=== PATIENT | female | born 1995 | race Caucasian/White ===

== ENCOUNTER → 2022-04-14 | Outpatient (CLI) | payer BC ==
[2022-04-14 22:53] LABS: HCT 40.8 % (37.2-46.3); HGB 13.3 g/dL (12.0-15.0); MCH 29.8 pg (27.0-32.0); MCHC 32.6 g/dL (32.0-37.0); MCV 91.3 fL (80.0-97.0); Mean Platelet Volume 8.7 fL (9.5-12.2); NRBC Per 100 WBC 0 /100 WBCS (0.0-0.0); Platelet Count 192 X 10*3/uL (140-440); RBC 4.47 X 10*6/uL (4.10-5.20); WBC 8.68 X 10*3/uL (4.50-10.00)
== END | disposition home or self-care (01) ==
LOC: LABWHC1 14:17
PROVIDERS: ATTEND Obstetrics & Gynecology Obstetrics
DX: Z36.9 Encounter for antenatal screening, unspecified (principal)
CPT/HCPCS: 36415; 82950; 85027

== ENCOUNTER 2022-07-08 06:00 | Inpatient (IN) | payer BC ==
[2022-07-08] MEDS ORDERED: miSOPROStoL 200 MCG TAB PO PRN (06:19)
[2022-07-08] MEDS ORDERED: TERBUTALINE 1 MG/ML VIAL SQ PRN (06:19)
[2022-07-08] MEDS ORDERED: LIDOCAINE 0.5% (PF) 5 MG/ML (50 ML SDV) SQ PRN (06:19)
[2022-07-08] MEDS ORDERED: OXYTOCIN 10 UNIT/ML 1 ML VIAL IM PRN (06:19)
[2022-07-08] MEDS ORDERED: METHYLERGONOVINE 0.2 MG/ML 1 ML AMP IM PRN (06:19)
[2022-07-08] MEDS ORDERED: TRANEXAMIC ACID IN NACL,ISO-OS 1,000 MG in EMPTY BAG 1 BAG IV PRN (06:19)
[2022-07-08] MEDS ORDERED: CARBOPROST TROMETHAMINE 250 MCG/ML 1 ML AMP IM PRN (06:19)
[2022-07-08] MEDS ORDERED: OXYTOCIN 30 UNITS/500 ML NS 30 UNIT in SALINE 1 500ML.BAG IV SCH ×2 (06:30→12:15)
[2022-07-08] MEDS: LACTATED RINGERS 1,000 ML IV SCH ×3 (06:32→14:46)
[2022-07-08 06:41] LABS: Basophils % (A) 0 %; Eosinophils # (A) 0.1 k/uL (0-0.7); Eosinophils % (A) 2 %; HCT 39.6 % (34.0-46.0); HGB 14.1 gm/dL (11.4-16.0); Lymphocytes # (A) 1.1 k/uL (1.0-4.8); Lymphocytes % (A) 14 %; MCH 30.1 pg (25.0-35.0); MCHC 35.5 g/dL (31.0-37.0); Mean Platelet Volume 7.3; Monocytes # (A) 0.4 k/uL (0-1.0); Monocytes % (A) 6 %; Neutrophils # (A) 6.1 k/uL (1.3-7.7); Neutrophils % (A) 77 %; Platelet Count 173 k/uL (150-450); RBC 4.66 m/uL (3.80-5.40)
[2022-07-08] MEDS ORDERED: fentaNYL (PF) 50 MCG/ML 5 ML AMP ONE (09:40)
[2022-07-08] MEDS ORDERED: SODIUM CHLORIDE 0.9% 100 ML BAG ONE (09:40)
[2022-07-08] MEDS ORDERED: ROPIVACAINE 5 MG/ML 20 ML AMPULE ONE (09:40)
[2022-07-08] MEDS ORDERED: BENZOCAINE/MENTHOL SPRAY 1 GM/SPRAY AEROSOL TOPICAL PRN (12:03)
[2022-07-08] MEDS ORDERED: diphenhydrAMINE 25 MG CAP PO PRN (12:03)
[2022-07-08] MEDS ORDERED: LANOLIN CREAM 5 GM TUBE TOPICAL PRN (12:03)
[2022-07-08] MEDS ORDERED: HYDROCORTISONE 2.5% RECTAL CREAM 30 GM TUBE RECTAL PRN (12:03)
[2022-07-08] MEDS ORDERED: diphenhydrAMINE 50 MG CAP PO PRN (12:03)
[2022-07-08] MEDS ORDERED: diphenhydrAMINE 50 MG/ML 1 ML VIAL IVP PRN ×2 (12:03)
[2022-07-08] MEDS ORDERED: SIMETHICONE 80 MG CHEWABLE PO PRN (12:03)
[2022-07-08] MEDS ORDERED: ZOLPIDEM 5 MG TAB PO PRN (12:03)
--- NOTE | 2022-07-08 12:09 | P.PROBDLV ---
Vaginal Delivery Note - . Vaginal Delivery Note: This is a 26-year-old at 39-5/7 weeks that presents to labor and delivery for induction of labor secondary to advanced cervical dilation. Patient was noted to be 4 cm 90% effaced with a bulging bag of water in the office. Patient was admitted and Pitocin induction of labor was begun per hospital protocol. Patient underwent amniotomy where clear fluid was obtained. Patient progressed quickly to 6 cm and requested epidural placement. Soon after the epidural patient was noted to be 9 cm. Patient progressed to complete began pushing and had a normal spontaneous vaginal delivery of a viable female infant at 1147, weight of 7 lbs. 8 oz., Apgars of 9 and 9 at one and 5 minutes respectively. After a two-minute delayed the umbo cord was doubly clamped and cut. The placenta was delivered spontaneously intact with three-vessel cord being noted. On inspection the patient's vaginal vault a second-degree midline laceration was appreciated. This was injected with lidocaine and repaired in usual fashion with 3-0 repeat. Uterus is noted be firm and below the umbilicus. A steady amount of bleeding was appreciated and resolved with fundal massage. The bladder was drained for approximately 200 mL of clear yellow urine. All counts were noted be correct 2 at the end of the delivery. Patient and infant tolerated delivery well and are resting comfortably.
--- NOTE | 2022-07-08 12:12 | P.HPOB ---
History of Present Illness H&P Date: 07/08/22 Chief Complaint: IUP @ 39 5/7 weeks, advanced cervical dilation This is a 26 yo at 39 5/7 weeks that presents for induction of labor secondary to advanced cervical dilation. She has been receiving routine care with myself which has been essentially uncomplicated. Patient has noted good movement, denies contractions loss of fluid or vaginal bleeding. On bloodwork this patient is a blood type of B+, rubella status immune, hepatitis B surface antigen negative, HIV negative, RPR is nonreactive. Review of Systems Constitutional: Denies chills, Denies fatigue, Denies fever Ears, nose, mouth and throat: Denies headache Cardiovascular: Reports leg edema Respiratory: Denies dyspnea Gastrointestinal: Denies nausea, Denies vomiting Genitourinary: Reports Past Medical History Past Medical History: No Reported History History of Any Multi-Drug Resistant Organisms: None Reported Past Surgical History: No Surgical Hx Reported Past Anesthesia/Blood Transfusion Reactions: No Reported Reaction Past Psychological History: No Psychological Hx Reported Smoking Status: Never smoker Medications and Allergies Home Medications Medication Instructions Recorded Confirmed Type Aspirin [Adult Low Dose Aspirin EC] 81 mg PO DAILY 07/08/22 07/08/22 History Vit No.179/Iron/Folic 1 each PO DAILY 07/08/22 07/08/22 History [ Tablet] Allergies Allergy/AdvReac Type Severity Reaction Status Date / Time No Known Allergies Allergy Verified 07/08/22 06:17 Exam Osteopathic Statement: *. No significant issues noted on an osteopathic structural exam other than those noted in the History and Physical/Consult. Vital Signs Temp Pulse Resp BP Pulse Ox 07/08/22 06:15 96.9 F L 79 18 119/74 98 Intake and Output 07/07/22 07/08/22 07/08/22 22:59 06:59 14:59 Other: Weight 90.265 kg Targeted physical exam is performed in this date in general this a well- nourished well-developed female in no acute distress, breathing is nonlabored, heart has regular rate and rhythm, abdomen is gravid and appropriate for gestational age. On cervical exam she is 4/90/-2 station with clear fluid noted on amniotomy. heart tones are category 1 and she is rakesh every 3-4 minutes. Results Result Diagrams: 07/08/22 06:20 Assessment and Plan (1) Term Current Visit: Yes Status: Acute Code(s): Z34.90 - ENCNTR FOR SUPRVSN OF NORMAL , UNSP, UNSP TRIMESTER SNOMED Code(s): 22516018 Plan: 18-year-old at 39-5/7 weeks that presents for induction of labor secondary to advanced cervical patient was admitted and Pitocin induction of labor was begun. Patient is offered sado, nitrous, epidural for pain management throughout labor. Patient will consider her options. Anticipate spontaneous vaginal delivery later today.
[2022-07-08] MEDS: IBUPROFEN 600 MG TAB PO SCH ×2 (12:54→20:01)
[2022-07-08 16:23] VITALS: RESP 18
[2022-07-08] MEDS: ACETAMINOPHEN TAB 325 MG TAB PO PRN ×2 (17:14→23:37)
[2022-07-08] MEDS: SENNOSIDES-DOCUSATE SODIUM 1 EACH TAB PO SCH (20:01)
[2022-07-09] MEDS: IBUPROFEN 600 MG TAB PO SCH ×3 (02:18→14:06)
[2022-07-09] MEDS: SENNOSIDES-DOCUSATE SODIUM 1 EACH TAB PO SCH (08:12)
[2022-07-09] MEDS: ACETAMINOPHEN TAB 325 MG TAB PO PRN (08:12)
[2022-07-09 08:54] VITALS: BP 108/69; PULSE 71; TEMP 97.8
[2022-07-09] MEDS ORDERED: PRENATAL VIT-IRON-FOLIC ACID 1 EACH TABLET PO SCH (09:00)
--- NOTE | 2022-07-09 09:21 | P.DS ---
Providers Date of admission: 07/08/22 06:05 Expected date of discharge: 07/09/22 Attending physician: Jackelyn Castillo Primary care physician: Stated None - Discharge Diagnosis(es) (1) Term Current Visit: Yes Status: Acute (2) Status post vaginal delivery Current Visit: Yes Status: Acute (3) Obstetric vaginal laceration with second degree perineal laceration Current Visit: Yes Status: Acute Hospital Course: This is a 26 yo G1 now P1 that presented to labor and delivery at 39-5/7 weeks for induction of labor. Patient had been receiving routine care with myself which had been essentially uncomplicated. Patient was noted to be 4+ centimeters with a bulging bag of water in the office and induction was discussed given advanced cervical dilation. Patient agreed and presented for induction. For full details on this patient please see the dictated history and physical. Patient was admitted and Pitocin induction of labor was begun per hospital protocol. Patient underwent amniotomy and clear fluid was obtained. Patient progressed through labor eventually becoming uncomfortable and requesting epidural plate was noted. Patient progressed quickly to complete began pushing and had a normal spontaneous vaginal delivery of a viable female at 1147, weight of 7 lbs. 8 oz., Apgars of 9 and 9 at one and 5 minutes respectively. Patient did sustain a second-degree midline laceration during delivery. This was repaired in the usual fashion with 3-0 Rapide after instillation of lidocaine. Patient's course is been uneventful. On this day #1 she is ambulating and voiding without difficulty. She is tolerating a regular diet without nausea or vomiting. She states her pain is well-controlled. She would like discharge home later today if possible. Patient Condition at Discharge: Good Plan - Discharge Summary New Discharge Prescriptions: No Action Vit No.179/Iron/Folic [ Tablet] 1 each PO DAILY Aspirin [Adult Low Dose Aspirin EC] 81 mg PO DAILY Discharge Medication List Aspirin [Adult Low Dose Aspirin EC] 81 mg PO DAILY 07/08/22 [History] Vit No.179/Iron/Folic [ Tablet] 1 each PO DAILY 07/08/22 [History] Follow up Appointment(s)/Referral(s): Jackelyn Castillo DO [Doctor of Osteopathic Medicine] - 4 Weeks Patient Instructions/Handouts: Vaginal Delivery (DC), Vaginal Delivery (GEN) Activity/Diet/Wound Care/Special Instructions: No tub baths or intercourse until 6 weeks . [id number] ibuprofen as needed for pain. Patient is to follow-up for routine check in 4 weeks. Discharge Disposition: HOME SELF-CARE
== END 2022-07-09 14:30 | disposition home or self-care (01) | DRG 807 ==
LOC: 4FBP 06:05
PROVIDERS: ADMIT Obstetrics & Gynecology Obstetrics; ATTEND Obstetrics & Gynecology Obstetrics
PROC: 10E0XZZ Delivery of Products of Conception, External Approach (ICD-10-PCS; principal; 2022-07-08)
PROC: 0KQM0ZZ Repair Perineum Muscle, Open Approach (ICD-10-PCS; 2022-07-08)
PROC: 10907ZC Drainage of Amniotic Fluid, Therapeutic from Products of Conception, Via Natural or Artificial Opening (ICD-10-PCS; 2022-07-08)
PROC: 4A0HXCZ Measurement of Products of Conception, Cardiac Rate, External Approach (ICD-10-PCS; 2022-07-08)
PROC: 3E033VJ Introduction of Other Hormone into Peripheral Vein, Percutaneous Approach (ICD-10-PCS; 2022-07-08)
DX: O70.1 Second degree perineal laceration during delivery (principal); Z37.0 Single live birth; Z3A.39 39 weeks gestation of pregnancy; Z79.82 Long term (current) use of aspirin
CPT/HCPCS: 85025; 86850; 86900; 86901

== ENCOUNTER → 2022-10-13 | Outpatient (CLI) | payer BC ==
[2022-10-13 17:52] LABS: Hepatitis A Antibody IgM Nonreactive; Hepatitis B Core IgM Nonreactive; Hepatitis B Surface Antigen Nonreactive; Hepatitis C IgG Antibody Nonreactive
[2022-10-13 19:36] LABS: HIV 2 AB Non-Reactive (Non-Reactive); HIV AB P24 Non-Reactive (Non-Reactive); HIV P24 AG Non-Reactive (Non-Reactive)
== END | disposition home or self-care (01) ==
LOC: LABWHC1 10:06
PROVIDERS: ATTEND Pediatrics
DX: Z39.1 Encounter for care and examination of lactating mother (principal)
CPT/HCPCS: 36415; 80074; 86780; 86790; 87390